=== PATIENT | male | born 2000 | race Hispanic/Latino ===

== ENCOUNTER 2023-11-16 17:35 | Emergency (ER) | payer SELFPAY ==
[~2023-11-16] VITALS: Ht 177.8 cm; Wt 77.1 kg
[2023-11-16] MEDS: LIDOCAINE HCL 1% 20 ML VIAL INJ SCH (19:28)
[2023-11-16] MEDS: OCTYL 2-CYANOACRYLATE 1 EACH TP SCH (19:29)
[2023-11-16 19:58] VITALS: BP 128/88; PULSE 66; RESP 20; O2SAT 99
[2023-11-16] MEDS: NEOMY SULF/BACITRA/POLYMYXIN B 1 EACH PACKET TP ONE (20:04)
== END 2023-11-16 20:04 | disposition home or self-care (01) ==
LOC: EDH 17:35
DX: S61.511A Laceration without foreign body of right wrist, initial encounter (principal); S61.411A Laceration without foreign body of right hand, initial encounter; Z98.890 Other specified postprocedural states; W25.XXXA Contact with sharp glass, initial encounter; Y93.89 Activity, other specified; Y92.89 Other specified places as the place of occurrence of the external cause; Y99.8 Other external cause status
CPT/HCPCS: 12002; 73110